=== PATIENT | female | born 1960 | race Two or more races ===

== ENCOUNTER 2018-01-31 03:28 | Emergency (ER) | payer OTHER ==
[2018-01-31] MEDS ORDERED: Morphine INJ* 2 MG/ML 1 ML SYRINGE (TWO MG - NEW SYRINGE VERSION) IV ONE (03:54)
[2018-01-31] MEDS ORDERED: Aspirin 81 mg CHEW TAB* 81 MG TAB.CHEW PO ONE (03:54)
[2018-01-31] MEDS ORDERED: Ondansetron INJ* 2 MG/ML VIAL IV ONE (03:54)
--- NOTE | 2018-01-31 03:57 | ED ---
HPI Chest Pain - HPI Summary HPI Summary: This is crystal Aguiar documenting for attending Day Holm MD. This patient is a 57 year old F presenting to ED with a chief complaint of CP since 2099 on 01/30/18. The CC is described as constant pressure, radiating to side of neck and piercing through my back. The patient rates the pain 7/10 in severity. Symptoms aggravated by nothing. Symptoms alleviated by nothing. Patient reports N/V and slight difficulty breathing. - History of Current Complaint Chief Complaint: EDChestPainROMI Time Seen by Provider: 01/31/18 03:36 Hx Obtained From: Patient Hx Last Menstrual Period: No periods. Onset/Duration: Started Days Ago - since 2099 on 01/30/18, Still Present Timing: Constant, Lasting Days - since 2099 on 01/30/18 Initial Severity: Severe Current Severity: Severe Pain Intensity: 8 Pain Scale Used: 0-10 Numeric Chest Pain Radiates: Yes Chest Pain Radiates To:: Other - radiating to side of neck and piercing through my back Character: Pressure/Squeezing, Sharp/Stabbing Aggravating Factor(s): Nothing Alleviating Factor(s): Nothing Associated Signs and Symptoms: Positive: Other: - Patient reports N/V and slight difficulty breathing. - Allergy/Home Medications Allergies/Adverse Reactions: Allergies Allergy/AdvReac Type Severity Reaction Status Date / Time beef derived (bovine) Allergy Unknown Verified 01/31/18 05:45 Reaction Details chlorhexidine Allergy Rash And Verified 01/31/18 03:55 Itching latex Allergy Rash And Verified 01/31/18 03:55 Itching Home Medications: Home Medications Albuterol Sulfate [Ventolin Hfa] 1 puff INH Q4HR PRN 01/31/18 [History Confirmed 01/31/18] Hydroxychloroquine TAB* [Plaquenil TAB*] 200 mg PO BID 01/31/18 [History Confirmed 01/31/18] Oxycodone HCl 1 tab PO Q6H PRN 01/31/18 [History Confirmed 01/31/18] Tramadol HCl 1 tab PO Q6H PRN 01/31/18 [History Confirmed 01/31/18] PMH/Surg Hx/FS Hx/Imm Hx Endocrine/Hematology History: Reports: Hx Anticoagulant Therapy - Aspirin 325 mg a day., Hx Thyroid Disease Denies: Hx Diabetes, Hx Anemia Cardiovascular History: Reports: Hx Aneurysm - 2 brain aneurysms: 1 clipped and 1 under observation Denies: Hx Congestive Heart Failure, Hx Deep Vein Thrombosis, Hx Hypertension , Hx Myocardial Infarction, Hx Pacemaker/ICD Respiratory History: Reports: Hx Asthma - She is not using the inhaler at this time. Denies: Hx Chronic Obstructive Pulmonary Disease (COPD), Hx Lung Cancer, Hx Pneumonia, Hx Pulmonary Embolism GI History: Denies: Hx Gall Bladder Disease, Hx Gastrointestinal Bleed, Hx Jaundice, Hx Ulcer, Hx Urosepsis History: Denies: Hx Kidney Stones, Hx Renal Disease Musculoskeletal History: Denies: Hx Scoliosis Sensory History: Denies: Hx Hearing Aid Neurological History: Denies: Hx Dementia, Hx Headaches, Hx Migraine, Hx Seizures, Hx Transient Ischemic Attacks (TIA), Other Neuro Impairments/Disorders Psychiatric History: Denies: Hx Anxiety, Hx Depression, Hx Panic Disorder, Hx Schizophrenia, Hx Bipolar Disorder - Surgical History Surgery Procedure, Year, and Place: appy, c section, surgical excision of left breast, esophageal surgery-[facility], cysts removed from uterus. ANEURYSM - COIL & STENT- 10/2013 COIL - PENUMBRA COIL 400- MR CONDITIONAL 1.5T OR 3T (SPECIFIC INFO -W/ORDER & COPY IN W/OP NOTE) - ANEURYSM STENT - NEUROFORM EZ - MR CONDITIONAL 5 FOR 1.5T,3T -. (SPECIFICS W/ORDER & COPY IN PT'S CHART) Infectious Disease History: No Infectious Disease History: Denies: Traveled Outside the [place] in Last 30 Days - Family History Known Family History: Positive: Other Family History: breast CA - Social History Alcohol Use: Occasionally Hx Substance Use: No Substance Use Type: Reports: None Hx Tobacco Use: Yes Smoking Status (MU): Former Smoker Review of Systems Positive: Chest Pain Positive: Other - slight difficulty breathing Positive: Vomiting, Nausea All Other Systems Reviewed And Are Negative: Yes Physical Exam - Summary Physical Exam Summary: VITAL SIGNS: Reviewed. GENERAL: Patient is a well-developed and nourished FEMALE who is lying comfortable in the stretcher. Patient is not in any acute respiratory distress. HEAD AND FACE: No signs of trauma. No ecchymosis, hematomas or skull depressions. No sinus tenderness. EYES: PERRLA, EOMI x 2, No injected conjunctiva, no nystagmus. EARS: Hearing grossly intact. Ear canals and tympanic membranes are within normal limits. MOUTH: Oropharynx within normal limits. NECK: Supple, trachea is midline, no adenopathy, no JVD, no carotid bruit, no c- spine tenderness, neck with full ROM. CHEST: Symmetric, no tenderness at palpation LUNGS: Clear to auscultation bilaterally. No wheezing or crackles. CVS: Regular rate and rhythm, S1 and S2 present, no murmurs or gallops appreciated. ABDOMEN: Soft, non-tender. No signs of distention. No rebound no guarding, and no masses palpated. Bowel sounds are normal. EXTREMITIES: FROM in all major joints, no edema, no cyanosis or clubbing. NEURO: Alert and oriented x 3. No acute neurological deficits. Speech is normal and follows commands. SKIN: Dry and warm Triage Information Reviewed: Yes Vital Signs On Initial Exam: Initial Vitals Temp Pulse Resp BP Pulse Ox 97.5 F 66 18 157/88 98 01/31/18 03:31 01/31/18 03:31 01/31/18 03:31 01/31/18 03:31 01/31/18 03:31 Vital Signs Reviewed: Yes Diagnostics - Vital Signs Vital Signs Temp Pulse Resp BP Pulse Ox 01/31/18 03:31 97.5 F 66 18 157/88 98 - Laboratory Result Diagrams: 01/31/18 04:00 01/31/18 04:00 Lab Statement: Any lab studies that have been ordered have been reviewed, and results considered in the medical decision making process. - Radiology CXR Radiology Interpretation Completed By: ED Physician - No acute processes. Pending radiologist official interpretation. - EKG 0351 Cardiac Rate: Bradycardia - 54 BPM EKG Rhythm: Sinus Bradycardia EKG Interpretation: Normal axis. Normal interval. No ischemic changes. Re-Evaluation - Re-Evaluation First Eval Re-Evaluation Time: 04:46 Comment: Patient was reluctant to take pain medications, but she just took it now. Chest Pain Course/Dx - Course Assessment/Plan: This patient is a 57 yo F c/o CP with no associated sx. Her trop is negative and her EKG is unremarkable. This patient will be signed out to Dr. Ruiz, awaiting 2nd trop at 0800, re-eval, and dispo. - Chest Pain Differential Diagnosis/HQI/PQRI: Other: - chest pain - Diagnoses Provider Diagnoses: Chest pain Discharge - Sign-Out/Discharge Documenting (check all that apply): Sign-Out Patient Signing out patient TO: Mamadou Ruiz - Discharge Plan Referrals: George Cameron MD [Primary Care Provider] -
[2018-01-31 04:15] LABS: ABS Basophils 0.1 10^3/ul (0-0.2); ABS Eosinophils 0.2 10^3/ul (0-0.6); ABS Monocytes 0.5 10^3/ul (0-0.8); ABS Neutrophils 2.9 10^3/ul (1.5-7.7); ABS Nucleated RBC 0 10^3/ul; Eosinophil % 3.6 % (0-6); Hematocrit 37 % (35-47); Hemoglobin 12.6 g/dl (12.0-16.0); Lymphocyte % 35.1 % (25-47); Mean Corpuscular HGB Conc 34 g/dl (31-36); Mean Corpuscular Hemoglobin 30 pg (27-31); Mean Corpuscular Volume 88 fL (80-97); Mean Platelet Volume 7.4 um3 (7.4-10.4); Nucleated Red Blood Cells % 0; Platelet Count 200 10^3/ul (150-450); Red Blood Count 4.19 10^6/ul (4.00-5.40); Red Cell Distribution Width 14 % (10.5-15); White Blood Count 5.6 10^3/ul (3.5-10.8)
[2018-01-31 04:23] LABS: INR 0.92 (0.77-1.02)
[2018-01-31 04:32] LABS: EGFR Non-African American 62.7 (>60)
--- NOTE | 2018-01-31 07:09 | ED ---
Progress - Progress Note Progress Note: This is scribsantino Fountain documenting for attending Mamadou Ruiz MD. CXR: no active cardiopulmonary disease is noted. This report was reviewed by ED physician. - EKG/XRAY/CT XRAY: chest - no active cardiopulmonary disease is noted. This report was reviewed by ED physician. Re-Evaluation - Re-Evaluation First Eval Re-Evaluation Time: 04:46 Comment: Patient was reluctant to take pain medications, but she just took it now. Second Eval Re-Evaluation Time: 08:25 Change: Improved Comment: Dr. Ruiz performed the second re-eval. Patient is still complaining of pain, but it has improved slightly. Will stay in ED for some time longer. Third Eval Re-Evaluation Time: 09:58 Change: Improved Comment: Chest pain was improved but still present. Further treatment options were discussed. Patient will be discharged to home and will follow up with PCP within 3 days. Course/Dx - Course Course Of Treatment: Ms. Smith presented on the earlier shift with chest pain that was atypical and had lasted all night long. She drove back from [place] arriving yesterday and therefore CTA was obtained which was negative for PE. She was also worked up with 2 troponins both of which were 0 and the rest of her workup was negative. She will be discharged for follow-up diagnosis. - Diagnoses Provider Diagnoses: Chest pain Discharge - Sign-Out/Discharge Documenting (check all that apply): Patient Departure - discharge - Discharge Plan Condition: Stable Disposition: HOME Patient Education Materials: Chest Pain (ED) Referrals: George Cameron MD [Primary Care Provider] - 3 Days Additional Instructions: Return to ED for any new or worsening symptoms. - Billing Disposition and Condition Condition: STABLE Disposition: Home
--- NOTE | 2018-01-31 07:48 | RAD ---
Indication: Chest pain. Single frontal view of the chest performed at 0422 hours was reviewed. Comparison is made with previous exam dated July 27, 2014. No mediastinal shift is noted. Cardiomegaly is noted. Lung herring appear clear. No pleural fluid is identified. IMPRESSION: NO ACTIVE CARDIOPULMONARY DISEASE IS NOTED. R0
[2018-01-31] MEDS ORDERED: Iohexol 350* (CONTRAST) 500 ML MDV IV ONE (08:41)
--- NOTE | 2018-01-31 09:29 | RAD ---
HISTORY: CP chest pain COMPARISONS: November 19, 2006 TECHNIQUE: Multiple contiguous axial CT scans of the chest were obtained after the administration of nonionic intravenous contrast, timed to the pulmonary arterial phase of contrast enhancement.. Coronal and sagittal multiplanar reformations are also submitted for review. FINDINGS: NECK AND THYROID: The lower neck and thyroid are unremarkable. CHEST WALL: There is no lower cervical, axillary, or supraclavicular lymphadenopathy by size criteria. HEART AND PERICARDIUM: The heart is unremarkable. AORTA AND PULMONARY VASCULATURE: There is no pulmonary arterial filling defect to suggest pulmonary embolism. There is no linear filling defect within the aorta to suggest aortic dissection. MEDIASTINUM: There is no mediastinal lymphadenopathy by size criteria. TOMMY: There is no hilar lymphadenopathy by size criteria. AIRWAY AND ESOPHAGUS: The airway is unremarkable, without endobronchial filling defect. The esophagus is grossly normal. LUNG PARENCHYMA: The lungs are clear. PLEURA: No pleural abnormalities are noted. UPPER ABDOMEN: The upper abdomen is unremarkable. BONES AND SOFT TISSUES: Incidentally noted is a lipoma of the inferior margin of the left trapezius muscle. Mild degenerative changes are noted. OTHER: None. IMPRESSION: NO PULMONARY ARTERIAL FILLING DEFECT TO SUGGEST PULMONARY EMBOLISM.
[2018-01-31 10:33] VITALS: BP 144/81
== END 2018-01-31 10:25 | disposition home or self-care (01) ==
LOC: ED 03:28
DX: R07.89 Other chest pain (principal); R00.1 Bradycardia, unspecified; Z79.82 Long term (current) use of aspirin; Z86.79 Personal history of other diseases of the circulatory system; Z87.891 Personal history of nicotine dependence; Z88.8 Allergy status to other drugs, medicaments and biological substances
CPT/HCPCS: 36415; 71045; 71275; 80053; 82550; 83735; 83880; 84484; 85025; 85610; 85730; 93005; 96374; 96375; 99284; A9270-GY; J2270; J2405; Q9967